=== PATIENT | male | born 1985 | race Caucasian/White ===

== ENCOUNTER 2016-06-04 12:12 | Emergency (ER) | payer MEDICAID ==
[~2016-06-04] VITALS: Ht 180.3 cm; Wt 73.9 kg
[2016-06-04 12:31] VITALS: BP 151/95
--- NOTE | 2016-06-04 12:35 | NUR ---
PATIENT LEFT WITHOUT BEING SEEN BY DR. JIMENEZ. NO FURTHER CARE PROVIDED FOR PATIENT.
== END 2016-06-04 12:35 | disposition left against medical advice (07) ==
LOC: MED 12:12
DX: H57.12 Ocular pain, left eye (principal); Z53.21 Procedure and treatment not carried out due to patient leaving prior to being seen by health care provider